=== PATIENT | male | born 1995 | race Caucasian/White ===

== ENCOUNTER 2020-07-17 11:44 | Emergency (ER) | payer MEDICAID ==
[~2020-07-17] VITALS: Ht 182.9 cm; Wt 88.6 kg
[2020-07-17 12:34] LABS: COVID AG,FIA SOURCE NASAL SWAB
[2020-07-17 13:40] LABS: RAPID GROUP A STREP NEGATIVE (NEGATIVE)
[2020-07-17 14:02] VITALS: BP 104/64
== END 2020-07-17 14:15 | disposition home or self-care (01) ==
LOC: EMS 11:44
DX: J40 Bronchitis, not specified as acute or chronic (principal); F17.210 Nicotine dependence, cigarettes, uncomplicated; Z20.822 Contact with and (suspected) exposure to COVID-19
CPT/HCPCS: 71045; 87426; 87430; 99284